=== PATIENT | female | born 1980 | race Caucasian/White ===

== ENCOUNTER → 2017-11-05 | Outpatient (CLI) | END | disposition home or self-care (01) ==

== ENCOUNTER 2018-05-28 17:45 | Inpatient (IN) | payer MEDICAID ==
[~2018-05-28] VITALS: Ht 154.9 cm; Wt 82.6 kg
[2018-05-28 18:25] VITALS: Ht 154.9 cm; Wt 82.6 kg
[2018-05-28 18:26] VITALS: BP 114/57; PULSE 77; RESP 19
--- NOTE | 2018-05-28 22:24 | HP ---
Date/Time of Note Date/Time of Note DATE: 05/28/18 TIME: 22:19 OB - History Hx of Present Chief Complaint: antepartum testing Estimated Due Date: Jun 30, 2018 : 5 Para: 4 Spontaneous : 0 Therapeutic : 0 Care: Good Care Ultrasounds: Normal mid trimester US Obstetrical Complications: Gestational Diabetes Medical Complications: None Past Family/Social History * Past Medical, Surgical, Family and Obstetric Histories reviewed from chart. OB Admission Exam Vital Signs Vital Signs Vital Signs Date Temp Pulse Resp B/P (MAP) Pulse Ox O2 O2 Flow FiO2 Time Delivery Rate 05/28/18 98.5 77 19 114/57 Room Air 18:26 (76) Physical Exam HEENT: WNL Heart: Rhythm Normal Lungs: Clear, Equal Abdomen: WNL Extremities: Normal Reflexes: Normal Heart Rate: 120's Accelerations: Accelerations Present Decelerations: No Decelerations Varibility: Minimum Last 72 hourBlood Glucose Bedside Glucose - 72 Hours Test 05/28/18 19:56 Bedside Glucose 189 mg/dL (70-220) OB Assessment/Plan Reason for admission: other Other Assessment: uncontrolled DM Non reactive NST Plan: Other Other plan: Admit Continuous monitoring Perinatology consult ELEAZAR BEDOYA MD May 28, 2018 22:24
[2018-05-28] MEDS ORDERED: GLUCAGON 1 MG INJ IM PRN (23:00)
[2018-05-28] MEDS ORDERED: DEXTROSE 50% 50 ML SYRINGE IV PRN ×2 (23:00)
[2018-05-28] MEDS ORDERED: GLUCOSE GEL 15 GRAM TUBE BUCCAL PRN (23:00)
[2018-05-28] MEDS ORDERED: GLUCOSE GEL 15 GRAM TUBE PO PRN ×2 (23:00)
[2018-05-29] MEDS ORDERED: INSULIN ASPART [NOVOLOG] 3 ML PEN SC SCH ×4 (01:05→17:35)
[2018-05-29] MEDS ORDERED: NPH, HUMAN INSULIN ISOPHANE 3ML VIAL SC SCH ×4 (01:11→20:00)
[2018-05-29] MEDS: INSULIN ASPART [NOVOLOG] 3 ML PEN SC SCH ×3 (09:21→20:26)
[2018-05-29] MEDS: NPH, HUMAN INSULIN ISOPHANE 3ML VIAL SC SCH (09:23)
--- NOTE | 2018-05-29 10:11 | TRIAGE ---
OB Triage Datetime Report Generated by CPN: 05/29/2018 10:10 Datetime: 05/29/2018 09:00 Assessment Type: Admission Assessment Vaginal Bleeding: None Maternal Assessment Level of Consciousness: Fully Conscious DTR's/Clonus: DTRs 2+; No Clonus Headache: Denies Blurred Vision: No Respiratory Effort: Unlabored; Regular Rhythm; Equal Expansion Breath Sounds, Left: Clear and Equal Breath Sounds, Right: Clear and Equal Nausea/Vomiting: Denies RUQ Epigastric Pain: Denies Lower Extremities Edema: None Degree: None Upper Extremities Edema: None Degree: None Facial Edema: None Fall Risk Assessment History of Falling: (0) No Secondary Diagnosis: (0) No Ambulatory Aid: (0) Bedrest/Nurse Assist IV Therapy: (0) No Gait: (0) Normal/Bedrest/Immobile Mental Status: (0) Oriented to Own Ability Fall Score: 0 Fall Risk Score Definition: No Risk: No action required Labor Evaluation Frequency: irr Duration (sec)2399: 50 Quality: Mild Pattern: Normal: <= 5 Contractions in 10 Minutes Resting Tone [place]: Relaxed Heart Rate FHR Baseline Rate: 144 Variability: Moderate 6-25 bpm Accelerations: 15X15 Decelerations: None Category: Category I Pain Assessment Pain Scale: 0 Vaginal Exam Membrane Status: Intact Datetime: 05/29/2018 07:57 Labor Evaluation Frequency: 3-6 Monitor Mode: External Duration (sec)2399: 50-60 Quality: Mild Pattern: Normal: <= 5 Contractions in 10 Minutes Resting Tone [place]: Relaxed Heart Rate FHR Baseline Rate: 135 Monitor Mode: External US Variability: Moderate 6-25 bpm Accelerations: 15X15 Decelerations: None Category: Category I Pain Presence: None/Denies Pain Type: N/A Datetime: 05/29/2018 07:00 Stage of : OB Triage Labor Evaluation Frequency: IRREG Monitor Mode: External Duration (sec)2399: 50-80 Quality: Mild Pattern: Normal: <= 5 Contractions in 10 Minutes Resting Tone [place]: Relaxed Heart Rate FHR Baseline Rate: 140 Monitor Mode: External US Variability: Moderate 6-25 bpm Accelerations: 15X15 Decelerations: None Category: Category I Datetime: 05/29/2018 06:00 Stage of : OB Triage Labor Evaluation Frequency: IRREG Monitor Mode: External Duration (sec)2399: 50-80 Quality: Mild Pattern: Normal: <= 5 Contractions in 10 Minutes Resting Tone [place]: Relaxed Heart Rate FHR Baseline Rate: 140 Monitor Mode: External US Variability: Moderate 6-25 bpm Accelerations: 15X15 Decelerations: None Category: Category I Datetime: 05/29/2018 05:00 Stage of : OB Triage Labor Evaluation Frequency: IRREG Monitor Mode: External Duration (sec)2399: 50-80 Quality: Mild Pattern: Normal: <= 5 Contractions in 10 Minutes Resting Tone [place]: Relaxed Heart Rate FHR Baseline Rate: 140 Monitor Mode: External US Variability: Moderate 6-25 bpm Accelerations: 15X15 Decelerations: None Category: Category I Datetime: 05/29/2018 04:00 Stage of : OB Triage Labor Evaluation Frequency: IRREG Monitor Mode: External Duration (sec)2399: 50-80 Quality: Mild Pattern: Normal: <= 5 Contractions in 10 Minutes Resting Tone [place]: Relaxed Heart Rate FHR Baseline Rate: 140 Monitor Mode: External US Variability: Moderate 6-25 bpm Accelerations: 15X15 Decelerations: None Category: Category I Datetime: 05/29/2018 03:00 Stage of : OB Triage Labor Evaluation Frequency: IRREG Monitor Mode: External Duration (sec)2399: 50-80 Quality: Mild Pattern: Normal: <= 5 Contractions in 10 Minutes Resting Tone [place]: Relaxed Heart Rate FHR Baseline Rate: 140 Monitor Mode: External US Variability: Moderate 6-25 bpm Accelerations: 15X15 Decelerations: None Category: Category I Datetime: 05/29/2018 02:00 Stage of : OB Triage Labor Evaluation Frequency: IRREG Monitor Mode: External Duration (sec)2399: 50-90 Quality: Mild Pattern: Normal: <= 5 Contractions in 10 Minutes Resting Tone [place]: Relaxed Heart Rate FHR Baseline Rate: 140 Monitor Mode: External US Variability: Moderate 6-25 bpm Accelerations: 15X15 Decelerations: None Category: Category I Datetime: 05/29/2018 01:00 Stage of : OB Triage Labor Evaluation Frequency: OCCASS Monitor Mode: External Duration (sec)2399: 50-60 Quality: Mild Pattern: Normal: <= 5 Contractions in 10 Minutes Resting Tone [place]: Relaxed Heart Rate FHR Baseline Rate: 145 Monitor Mode: External US Variability: Moderate 6-25 bpm Accelerations: 15X15 Decelerations: None Category: Category I Datetime: 05/29/2018 00:00 Stage of : OB Triage Labor Evaluation Frequency: [place]CC[place] Monitor Mode: External Duration (sec)2399: 50-90 Quality: Mild Pattern: Normal: <= 5 Contractions in 10 Minutes Resting Tone [place]: Relaxed Heart Rate FHR Baseline Rate: 140 Monitor Mode: External US Variability: Moderate 6-25 bpm Accelerations: 15X15 Decelerations: None Category: Category I Datetime: 05/28/2018 23:00 Stage of : OB Triage Labor Evaluation Frequency: OCCASS Monitor Mode: External Duration (sec)2399: 50-80 Quality: Mild Pattern: Normal: <= 5 Contractions in 10 Minutes Resting Tone [place]: Relaxed Heart Rate FHR Baseline Rate: 150 Monitor Mode: External US Variability: Moderate 6-25 bpm Accelerations: 15X15 Decelerations: None Category: Category I Datetime: 05/28/2018 22:00 Stage of : OB Triage Labor Evaluation Frequency: OCCASS Monitor Mode: External Duration (sec)2399: 50-90 Quality: Mild Pattern: Normal: <= 5 Contractions in 10 Minutes Resting Tone [place]: Relaxed Heart Rate FHR Baseline Rate: 150 Monitor Mode: External US Variability: Moderate 6-25 bpm Accelerations: 15X15 Decelerations: None Category: Category I Pain Presence: None/Denies Datetime: 05/28/2018 21:00 Stage of : OB Triage Labor Evaluation Frequency: IRREGG Monitor Mode: External Duration (sec)2399: 50-90 Quality: Mild Pattern: Normal: <= 5 Contractions in 10 Minutes Resting Tone [place]: Relaxed Heart Rate FHR Baseline Rate: 150 Monitor Mode: External US Variability: Moderate 6-25 bpm Accelerations: 15X15 Decelerations: None Category: Category I Pain Presence: None/Denies Datetime: 05/28/2018 20:00 Stage of : OB Triage Labor Evaluation Frequency: IRREGG Monitor Mode: External Duration (sec)2399: 50-90 Quality: Mild Pattern: Normal: <= 5 Contractions in 10 Minutes Resting Tone [place]: Relaxed Heart Rate FHR Baseline Rate: 150 Monitor Mode: External US Variability: Moderate 6-25 bpm Accelerations: 15X15 Decelerations: None Category: Category I Pain Presence: None/Denies Datetime: 05/28/2018 19:02 Labor Evaluation Frequency: occas Monitor Mode: External Duration (sec)2399: 50-90 Quality: Mild Pattern: Normal: <= 5 Contractions in 10 Minutes Resting Tone [place]: Relaxed Heart Rate FHR Baseline Rate: 150 Monitor Mode: External US Variability: Moderate 6-25 bpm Accelerations: 15X15 Decelerations: None Category: Category I Datetime: 05/28/2018 18:33 Assessment Type: Triage Time of Arrival: 05/29/2018 09:00 EGA: 35.3 Arrived By: Ambulatory Arrived From: Home Maternal Assessment Level of Consciousness: Fully Conscious DTR's/Clonus: DTRs 2+; No Clonus Headache: Denies Blurred Vision: No Respiratory Effort: Unlabored; Regular Rhythm; Equal Expansion Breath Sounds, Left: Clear and Equal Breath Sounds, Right: Clear and Equal Nausea/Vomiting: Denies RUQ Epigastric Pain: Denies Lower Extremities Edema: None Degree: None Upper Extremities Edema: None Degree: None Facial Edema: None Fall Risk Assessment History of Falling: (0) No Secondary Diagnosis: (0) No Ambulatory Aid: (0) Bedrest/Nurse Assist IV Therapy: (0) No Gait: (0) Normal/Bedrest/Immobile Mental Status: (0) Oriented to Own Ability Fall Score: 0 Fall Risk Score Definition: No Risk: No action required Datetime: 05/28/2018 18:32 Time of Arrival: 05/28/2018 17:45 Arrived By: Ambulatory Arrived From: Office Chief Complaint: GDM Movement: Present Contractions: Denies/Absent Rupture of Membranes: Denies Vaginal Bleeding: None Vaginal Discharge: Denies Recent Sexual Intercouse: Denies Abdominal Trauma: Not Applicable Patient Complaints: Other Time Provider Notified: 05/28/2018 20:10 Provider Notified: YOLETTE Initial Plan: NST AND BPP
[2018-05-29] MEDS: LACTATED RINGER'S 1,000 ML IV SCH ×2 (11:55→18:22)
--- NOTE | 2018-05-29 17:11 | PN ---
Date/Time of Note Date/Time of Note DATE: 05/29/18 TIME: 16:46 OB Subjective Subjective Subjective Assessment/plan: 38 years old with single intrauterine at 35 weeks and 3 days with A2 gestational diabetes versus diabetes mellitus and history of 4 previous delivery admitted for close monitoring of heart rate as there was episode of minimal variability last night and control of blood glucose. She was seen in the clinic yesterday, she forgot to bring blood sugar log, however she stated her FBS was 115 and 2 hours postprandial after lunch [id number] and 2 hours postprandial after dinner 156. She was on 18 units regular insulin and 28 units NPH in the a.m. and 14 units regular and 14 units NPH at p.m. The dose in creased last evening to 20 regular and 30 NPH at the a.m. and 16 regular and 16 units NPH at p.m. - FHR: Reassuring. No sign of metabolic acidosis- Category I - Contractions: Occasional, she is comfortable and not feeling those - Continuous EFM, toco - O+/RI/GBS: neg - Perinatology, health educator consult - I discussed pt over the phone with Dr. Ramirez who recommended BMZ x2, check FBS, premeal and 2hPP BG with ISS coverage except no needs for extra insulin for FBS coverage. Subjective: Date of admission: 05/29/2018 Patient seen and examined. She states good movement. She denies nausea, vomiting, shortness of breath, chest pain, abdominal pain, headache, visual changes, vaginal bleeding or LOF. OB Objective Objective Objective VS - Last 72 Hours, by Label Date Temp Pulse Resp B/P (MAP) Pulse Ox O2 O2 Flow FiO2 Time Delivery Rate 05/28/18 98.5 77 19 114/57 Room Air 18:26 (76) General: Patient appears well, alert and oriented, NAD, appropriate mood and affect ABD: gravid, soft, non-tender. Back: No CVA tenderness (B/L) LE: Mild edema. No clubbing, cyanosis, edema, thigh or calf tenderness bilaterally FHT: 135 bpm , moderate variability with acceleration, no deceleration-category I Contractions: Occasional OB Assessment/Plan Other plan: 38 years old with single intrauterine at 35 weeks and 3 days with A2 gestational diabetes versus diabetes mellitus and history of 4 previous delivery admitted for close monitoring of heart rate as there was episode of minimal variability last night and control of blood glucose. She was seen in the clinic yesterday, she forgot to bring blood sugar log, however she stated her FBS was 115 and 2 hours postprandial after lunch [id number] and 2 hours postprandial after dinner 156. She was on 18 units regular insulin and 28 units NPH in the a.m. and 14 units regular and 14 units NPH at p.m. The dose increased last evening to 20 regular and 30 NPH at the a.m. and 16 regular and 16 units NPH at p.m. - FHR: Reassuring. No sign of metabolic acidosis- Category I - Contractions: Occasional, she is comfortable and not feeling those - Continuous EFM, toco - O+/RI/GBS: neg - Perinatology, health educator consult - I discussed pt over the phone with Dr. Ramirez who recommended BMZ x2, check FBS, premeal and 2hPP BG with ISS coverage except no needs for extra insulin for FBS coverage. THANG DE LA VEGA May 29, 2018 17:09
[2018-05-29] MEDS ORDERED: NPH, HUMAN INSULIN ISOPHANE 3ML VIAL SC ONE (18:00)
[2018-05-29] MEDS: BETAMET NA PHOS/AC(6 MG/ML) 2 ML INJ SYG IM SCH (18:01)
[2018-05-29] MEDS: ACCU-CHEK XX SCH (18:40)
--- NOTE | 2018-05-30 01:33 | CONS ---
DATE OF ADMISSION: 05/29/2018 DATE OF CONSULTATION: 05/29/2018 HISTORY OF PRESENT ILLNESS: She was sent from the clinic because of uncontrolled diabetes. She is c urrently on NPH 30 units in the morning, Humalog 20 units before breakfast, Humalog 16 units before d inner and NPH 16 units at breakfast. I reviewed her blood sugars and fasting value is elevated. Two hours after breakfast, it is normal. These are the only 2 available values. RECOMMENDATIONS: Continue with the current dose of insulin. Only increase the NPH at bedtime to 18 units. ADDENDUM: Dr. De La Vega contacted me around 5:00 this afternoon and informed me that the patient is a ctually 35 weeks and 3 days and not 36 weeks. Given that information and the fact that she thought h ave contractions but she does not feel them, cervical exam is unknown and her sugars seems to be over all under controlled, Dr. De La Vega knew about her 2 hour after lunch value and is also normal, so bet amethasone should be given and continue with the insulin, but place the patient on insulin sliding sc conor. For insulin sliding scale, the patient's blood sugar should be checked fasting 2 hours after br eakfast, before lunch, 2 hours after lunch and before dinner, 2 hours after dinner. Insulin sliding scale should not cover the fasting values; otherwise it can be . If patient starts feeling the contractions and she is in pain then in that case I do believe delivery should be considered; however , final decision should be made based on clinical presentation of the patient. Dictated By: TYRONE SOLIMAN MD [facility] Conf#: [id number] DID#: [id number] CC: THANG DE LA VEGA MD;*EndCC*
[2018-05-30] MEDS: LACTATED RINGER'S 1,000 ML IV SCH ×3 (04:07→20:38)
[2018-05-30] MEDS: INSULIN ASPART [NOVOLOG] 3 ML PEN SC SCH ×4 (08:34→21:00)
[2018-05-30] MEDS: NPH, HUMAN INSULIN ISOPHANE 3ML VIAL SC SCH (08:36)
--- NOTE | 2018-05-30 13:13 | NUR ---
Nutrition Consult Consult regarding gestational diabetes education was ordered. Pt was seen at bedside. Recommended to avoid sugary drinks and sugar snacks. Talked about reducing grains, fruits, and milk intake. Encouraged her to eat more vegetables and protein. Also, talked about the benefits of exercising. all questions were answered and educational handouts were provided. Thank you!
[2018-05-30] MEDS ORDERED: DOCUSATE SODIUM 100 MG CAP PO PRN (17:00)
--- NOTE | 2018-05-30 18:00 | QN ---
Documentation Comment Denies any complaint. Denies any contraction, leaking of fluid or vaginal bleeding. Comfortable in bed General appearance: Alert and oriented x4 does not appear to be in any acute distress abdomen: Soft, size consistent with dates NST: Category 1 occasional rate contraction noted on the monitor Blood sugar well controlled with current regimen ordered by perinatologist Assessment IUP at 35 weeks and 4 days contraction, status post tocolysis and received 1 dose of steroid Due for second dose of steroid and 1824 today GDM, A2 Management of her blood sugar by insulin sliding scale on by perinatologist No evidence of labor Stable testing reassuring Continue routine management SCD while in bed LANE HERNANDEZ MD May 30, 2018 18:00
[2018-05-30] MEDS: BETAMET NA PHOS/AC(6 MG/ML) 2 ML INJ SYG IM SCH (18:20)
[2018-05-30] MEDS: ACCU-CHEK XX SCH ×2 (20:36→22:39)
[2018-05-30] MEDS ORDERED: INSULIN ISOPHANE (NPH) 10 ML INJ SC ONE (21:00)
[2018-05-31] MEDS: LACTATED RINGER'S 1,000 ML IV SCH ×3 (04:18→19:02)
[2018-05-31] MEDS ORDERED: morphine SULFATE/PF (10 MG/10 ML) INJ ONE (07:00)
[2018-05-31] MEDS ORDERED: OXYTOCIN 30 UNITS/LR 500 ML BAG IV ONE (07:00)
[2018-05-31] MEDS: INSULIN ASPART [NOVOLOG] 3 ML PEN SC SCH ×6 (07:05→21:00)
[2018-05-31] MEDS ORDERED: NPH, HUMAN INSULIN ISOPHANE 3ML VIAL SC ONE (07:05)
[2018-05-31] MEDS: ACCU-CHEK XX SCH ×3 (07:52→14:20)
--- NOTE | 2018-05-31 15:48 | CONS ---
DATE OF ADMISSION: 05/29/2018 DATE OF CONSULTATION: 05/31/2018 HISTORY OF PRESENT ILLNESS: I did review the patient's heart tone monitoring. There is 1 late deceleration; otherwise is reassuring. She is silvino, but she does not feel the contractions. Her cervical exam is closed. I do recommend to monitor in-house because she has had 4 C-sections. She is silvino, but so ther e is a risk of abruption and if she has 1 more late deceleration, I do recommend delivery, nonreassur ing heart tone. RECOMMENDATIONS: I do recommend delivery or she is in labor, I do recommend delivery. In addition, I reviewed her glucose values and an insulin adjustment was done. Dictated By: TYRONE SOLIMAN MD ST/[facility] Conf#: [id number] DID#: [id number] CC: THANG DE LA VEGA MD;*EndCC*
[2018-05-31] MEDS ORDERED: MISOPROSTOL 200 MCG TAB PR PRN ×2 (16:30→20:30)
[2018-05-31] MEDS ORDERED: CARBOPROST 250 MCG INJ IM PRN ×2 (16:30→20:30)
[2018-05-31] MEDS ORDERED: OXYTOCIN 30 UNITS/LR 500 ML IV PRN ×2 (16:30→20:30)
[2018-05-31] MEDS ORDERED: METHYLERGONOVINE 0.2 MG INJ IM PRN ×2 (16:30→20:30)
[2018-05-31] MEDS ORDERED: CEFAZOLIN 2 GM/50 ML (PMX) 50 ML IVPB SCH (16:30)
[2018-05-31] MEDS ORDERED: OXYTOCIN 30 UNITS/LR 500 ML IV SCH ×2 (16:30→20:22)
--- NOTE | 2018-05-31 16:44 | NUR ---
Diabetes Education Referral: Thank you for the referral. R: Upon discharge pt will require RX for True Metrix test strips, lancets and syringes. Consider recommending pt to GDM nutritional class. Pt stated she did not have T2DM before this , nor did she have GDM during her other pregnancies. Pt stated she has family members with T2DM. Pt stated prior to the hospital her levels would range from the 90-120s before meals and 140-170s after meals. Reviewed pt's insulin regimen and technique. Pt stated she only rolls her NPH 5 times prior to drawing up in the syringe, she injects the insulin cold and she takes her NPH and Regular together both AC breakfast and AC dinner. With the use of handouts discussed at length with patient at bedside how diabetes works in the body, how the extra glucose can cause hypoglycemia in the baby after delivery, where the glucose comes from, how food breaks down into glucose, and how different insulins (NPH & Regular) work. Reviewed glucose targets (pre and post meal), reviewed the different food groups and when/how to manage glucose by adjusting the carbohydrates and proteins. Discussed timing of the insulins, locations of administration, to rotate the administration site, to roll the NPH 20 times prior to drawing up, proper storage of the insulin, and to never inject insulin cold. Pt verbalized understanding. Reviewed the patient's increased risk of developing DM in the future but with diet and exercise she could possibly prevent it. All questions were answered. Resources provided for future questions.
--- NOTE | 2018-05-31 17:13 | QN ---
Documentation Comment 38y.o at 35w5d uc 6-8min who had x4 c/s earlier this am around 0500 had variable with late component for >1min closely observed , again at 1540 showed 1 late decelerations RN contacted Dr Red who advise to deliver. ate full meal at 1230 ,received NPH 34 Novalog 20 before breakfast 2hr PPBS 156 spoke to anesthegiologist (Solis herrera for 1900 today informed sharon Gallardo to go approximately 1900. patient also consented for tubal sterilization. will prepare for R C/S and BTL BESSY BLANCA MD May 31, 2018 17:12
[2018-05-31] MEDS ORDERED: ONDANSETRON 4 MG INJ IV STA (17:58)
[2018-05-31] MEDS ORDERED: METOCLOPRAMIDE 10 MG INJ IV ONE (18:00)
[2018-05-31] MEDS ORDERED: FAMOTIDINE 20 MG INJ IV ONE (18:00)
[2018-05-31] MEDS ORDERED: HYDROmorphONE 0.5 MG/0.5 ML SYG IV PRN ×2 (19:00)
[2018-05-31] MEDS ORDERED: KETOROLAC 30 MG INJ IV PRN ×2 (19:00)
[2018-05-31] MEDS ORDERED: NALOXONE (0.4 MG/ML) INJ IV PRN (19:00)
[2018-05-31] MEDS ORDERED: FENTAnyl 50 MCG/ML VIAL IV PRN ×2 (19:00)
[2018-05-31] MEDS ORDERED: ONDANSETRON 4 MG INJ IV PRN ×2 (19:00)
[2018-05-31] MEDS ORDERED: HYDROmorphONE 1 MG/5 ML IV SYRINGE IV PRN ×3 (19:00)
[2018-05-31] MEDS ORDERED: DIPHENHYDRAMINE 50 MG INJ IV PRN ×2 (19:00)
[2018-05-31] MEDS ORDERED: ZOLPIDEM 5 MG TAB PO PRN (19:00)
--- NOTE | 2018-05-31 19:00 | PREAC ---
Date/Time of Note Date/Time of Note DATE: 05/31/18 TIME: 18:58 Anesthesia Eval and Record Evaluation Time Pre-Procedure Interview DATE: 05/31/18 TIME: 18:58 Age 38 Sex female NPO: 8 hrs Preoperative diagnosis intolerance of labor Planned procedure repeat Csection Past Medical History Past Medical History: Includes : Other (CSx4 in past) Surgery & Anesthesia Issues Significant blood loss Meds Anticoagulation: No Beta Keyshawn within 24 hr: No Reason Beta Keyshawn not given: Pt. not on B-Keyshawn No Active Prescriptions or Reported Meds Current Medications Miscellaneous Information 1 ea NOTE XX ; Start 05/28/18 at 23:00 Glucose (Glutose) 15 gm Q15M PRN PO DECREASED GLUCOSE; Start 05/28/18 at 23:00 Glucose (Glutose) 22.5 gm Q15M PRN PO DECREASED GLUCOSE; Start 05/28/18 at 23:00 Dextrose (D50w Syringe) 25 ml Q15M PRN IV DECREASED GLUCOSE; Start 05/28/18 at 23:00 Dextrose (D50w Syringe) 50 ml Q15M PRN IV DECREASED GLUCOSE; Start 05/28/18 at 23:00 Glucagon (Glucagen) 1 mg Q15M PRN IM DECREASED GLUCOSE; Start 05/28/18 at 23:00 Glucose (Glutose) 15 gm Q15M PRN BUCCAL DECREASED GLUCOSE; Start 05/28/18 at 23:00 Insulin Aspart (Novolog Insulin Pen) 20 unit WITH BREAKFAST SC Last administered on 05/31/18at 08:01; Admin Dose 20 UNIT; Start 05/29/18 at 07:35 Insulin Aspart (Novolog Insulin Pen) 16 unit WITH DINNER SC Last administered on 05/30/18at 18:16; Admin Dose 16 UNIT; Start 05/29/18 at 17:35 Lactated Ringer's 1,000 ml @ 125 mls/hr Q8H IV Last administered on 05/31/18at 14:23; Admin Dose 125 MLS/HR; Start 05/29/18 at 12:00 Insulin Aspart (Novolog Insulin Pen) AC MEALS AND BEDTIME SC ; Start 05/29/18 at 21:00 Diagnostic Test (Pha) (Accu-Chek) 1 ea FBSPP XX Last administered on 05/31/18at 14:20; Admin Dose 1 EA; Start 05/29/18 at 19:35 Docusate Sodium (Colace) 100 mg BID PRN PO CONSTIPATION; Start 05/30/18 at 17:00 Insulin Human NPH (Humulin N) 30 unit DAILY@08 SC ; Start 06/01/18 at 08:00 Insulin Human NPH (Humulin N) 24 unit HS SC ; Start 05/31/18 at 21:00 Cefazolin Sodium/ Dextrose 50 ml @ 100 mls/hr ONCE IVPB ; Start 05/31/18 at 16:30 Oxytocin/Lactated Ringer's 500 ml @ 125 mls/hr POST IV ; Start 05/31/18 at 16:30 Oxytocin/Lactated Ringer's 500 ml @ 0 mls/hr ONCE PRN IV .VAGINAL BLEEDING; Start 05/31/18 at 16:30 Methylergonovine Maleate (Methergine) 0.2 mg ONCE PRN IM .VAGINAL BLEEDING; Start 05/31/18 at 16:30 Carboprost Tromethamine (Hemabate) 250 mcg ONCE PRN IM .VAGINAL BLEEDING; Start 05/31/18 at 16:30 Misoprostol (Cytotec) 1,000 mcg ONCE PRN RI .VAGINAL BLEEDING; Start 05/31/18 at 16:30 Meds reviewed: Yes Allergies Coded Allergies: No Known Drug Allergy (Verified Allergy, Unknown, 07/11/12) Allergies Reviewed: Yes Labs/Studies Labs Reviewed: Reviewed by anesthesiologist Result Diagram: 05/31/18 1724 Laboratory Tests 05/31/18 17:24 Blood Bank Test 05/31/18 17:24 Antibody Screen NEGATIVE Blood Product Summary Counts Blood Type O POSITIVE Crossmatch Red Blood Cells Rh Immune Globulin Candidate NO test: Positive Pre-procedure Exam Last vitals Vital Signs Date Temp Pulse Resp B/P (MAP) Pulse Ox O2 O2 Flow FiO2 Time Delivery Rate 05/28/18 98.5 77 19 114/57 Room Air 18:26 (76) Airway: Adequate mouth opening, Adequate thyromental dist Mallampati: Mallampati III Teeth: Normal Lung: Normal Heart: Normal ASA Physical Status ASA physical status: 3 Emergency: None Planned Anesthetic Neuraxial: Spinal Planned Pain Management Sub-arachniod narcotics, Parenteral pain med, Other neuraxial med Pre-operative Attestations Prior to commencing anesthesia and surgery, the patient was re-evaluated, there was verification of: *The patient's identity *The results of appropriate recent lab work and preoperative vital signs *The above evaluation not changing prior to induction *Anesthetic plan, risk benefits, alternative and complications discussed with patient/family; questions answered; patient/family understands, accepts and wishes to proceed. JOEY PARDO MD May 31, 2018 18:59
[2018-05-31] MEDS ORDERED: OXYTOCIN 30 UNITS/LR 500 ML IV ONE (19:02)
[2018-05-31] MEDS ORDERED: EPINEPHrine 1 MG INJ ONE (19:03)
[2018-05-31] MEDS ORDERED: DEXTROSE 5%-LR 1,000 ML IV SCH (20:22)
[2018-05-31] MEDS ORDERED: MAGNESIUM HYDROXIDE 30ML CUP PO PRN (20:30)
[2018-05-31] MEDS ORDERED: LANOLIN HPA 1 PKT TOP PRN (20:30)
[2018-05-31] MEDS ORDERED: METHYLERGONOVINE 0.2 MG TAB PO PRN (20:30)
[2018-05-31] MEDS ORDERED: NPH, HUMAN INSULIN ISOPHANE 3ML VIAL SC SCH ×2 (21:00)
[2018-05-31] MEDS ORDERED: FENTAnyl 50 MCG/ML VIAL ONE (21:05)
--- NOTE | 2018-05-31 22:01 | OPR ---
Operative Report Planned Procedure Procedure date May 31, 2018 Procedure(s) - Repeat low transverse delivery - Bilateral tubal ligation Performed by see signature line Legal Document Specialist: ESTEFANI MANRIQUE Anesthesiologist: JOEY PARDO MD Pre-procedure diagnosis A 38 years old with single intrauterine at 35 weeks and 5 days with A2 gestational diabetes versus diabetes mellitus, obesity, history of four previous delivery and nonreassuring heart rate desiring repeat delivery and permanent surgical sterilization. Liotc2Gy Anesthesia Type: [id number] spinal Post-Procedure Post-procedure diagnosis A 38 years old with single intrauterine at 35 weeks and 5 days with A2 gestational diabetes versus diabetes mellitus, obesity, history of 4 previous delivery and nonreassuring heart rate desiring repeat delivery and permanent surgical sterilization. Findings 1. Normal uterus except four centimeters window at right side of lower uterine segment. Normal fallopian tubes and ovaries 2. Viable male in cephalic presentation. 8 at one minute and 9 in 5 minutes. Weight: 3140 g - 7 pound 2 ounces. Height 19 inches. Time of delivery: 20:44 3. Placenta with three vessel cord 4. Amniotic fluid - Clear Estimated Blood Loss: 600 - 700 mls Specimen(s) none Grafts/Implant(s) none Complication(s) none Pt Condition post procedure: stable Disposition: PACU Procedure Description INDICATION AND HISTORY: A 38 years old with single intrauterine at 35 weeks and 5 days with A2 gestational diabetes versus diabetes mellitus, obesity, history of 4 previous delivery and nonreassuring heart rate desiring repeat delivery and permanent surgical sterilization. The risk of delivery including but not limited to bleeding, infection, injury to other organs (bowel, bladder, ureter, vessels, nerves), injury to fetus, blood transfusion, blood transfusion related infection, risk of anesthesia, adhesion, needs for future , removal of uterus, permanent surgical sterilization, increased risk of ectopic if failure of procedure occurs or any other indicated surgery was discussed with the patient and her family. She expressed understanding. All of her questions were answered. She signed the informed consent. DESCRIPTION OF OPERATION: The patient was taken to the operating room, where she was identified and the procedure was verified. The patient received two gram of Ancef 30 minutes prior to surgery. Spinal anesthesia was placed. The patient placed in the dorsal supine position with a left tilt. The heart rate was 136 bpm. The patient was then prepped and draped in the normal sterile fashion. A P fannenstiel skin incision was made and carried down to the fascia with Bovie. The fascia was incised in the midline and the fascial incision was carried laterally with Bovie. The superior portion of the fascial incision was then grasped with Adam clamps and tented up and dissected off the underlying rectus muscle with sharp dissection. The lower portion of the fascial incision was then made in a similar fashion. The rectus muscle was and the peritoneum was entered. The peritoneal incision was then stretched and an Jerod retractor was inserted. Then, an incision was made in the lower uterine segment in a transverse fashion with a knife and extended bluntly. The was delivered atraumatically in cephalic presentation with the above findings. The umbilical cord was clamped and cut. The neonatology resuscitation team was present and the baby was handed to them. A cord blood sample was obtained for further evaluation. The placenta and membrane, which appeared normal were Removed. The uterus was exteriorized and cleared of all clot and debris. The uterus was then closed in a two layer fashion with 0-Monocryl. At the time of closure, hemostasis was noted. The gutters were irrigated. The peritoneum was reapproximated with 3-0 Vicryl. The muscle was reapproximated with 3-0 Vicryl. The fascia was approximated with 0-PDS in a running fashion. The subcutaneous tissue was re approximated with 3-0 vicryl. The skin was closed with 4-0 Monocryl. All instruments, sponges and needle counts were correct x3. The patient tolerated the procedure well. She transferred to the recovery room in stable condition. THANG DE LA VEGA May 31, 2018 22:01
--- NOTE | 2018-05-31 22:06 | QN ---
Documentation Comment A 38 years old with single intrauterine at 35 weeks and 5 days with A2 gestational diabetes versus diabetes mellitus, obesity, history of 4 previous delivery and nonreassuring heart rate desiring repeat delivery and permanent surgical sterilization. Patient was seen by perinatologistDr. Ramirez, who recommend delivery. The risk of delivery including but not limited to bleeding, infection, injury to other organs (bowel, bladder, ureter, vessels, nerves), injury to fetus, blood transfusion, blood transfusion related infection, risk of anesthesia, adhesion, needs for future , removal of uterus, permanent surgical sterilization, increased risk of ectopic if failure of procedure occurs or any other indicated surgery was discussed with the patient and her family. She expressed understanding. All of her questions were answered. She signed the informed consent. She also is at significant risk for complications at the time of the delivery including shoulder dystocia, hemorrhage, possible Casserian- Hysterectomy for history of 4 previous delivery and at a further risk for postop complications including wound infection, deep vein thromboses and pulmonary embolism. All discussed with patient. She expressed understanding. Significance of losing weight after delivery also discussed. PHYSICIAN'S VERIFICATION OF INFORMED CONSENT The patient and her counseled regarding the procedure, its indications, risks, potential complications and alternatives and any questions were answered. Consent was obtained. PLANNED PROCEDURE/TREATMENT: delivery with possible using vac uum/forceps, bilateral tubal ligation and any other indicated surgery PHYSICIAN'S VERIFICATION OF INFORMED CONSENT FOR BLOOD TRANSFUSION: There is a reasonable possibility that blood transfusion will be necessary as a result of the patient's procedure. I have discussed the following with the patient/patient's legal account manager sales representative: An explanation of the benefits and risks of the transfusion of blood or blood products and the possible alternatives. All questions have been answered to the patient's satisfaction. INFORMED CONSENT:The patient has been informed of: The nature of the proposed care, treatment, services, medications, i nterventions or procedures. Potential benefits, risks or side effects, including potential problems related to recuperation. The likelihood of achieving care treatment and service goals. Reasonable alternatives to the proposed care, treatment and service. The relevant risks, benefits and side effects related to alternatives, including the possible results of not receiving care, treatment and services. When indicated, any limitations on the confidentiality of information learned from or about the patient. If appropriate, the risks, benefits and alternatives of the drugs to be used for sedation/analgesia including moderate sedation. If appropriate, patient has been provided information on the risks, benefits and alternatives to the transfusion of blood and/or blood products. If appropriate, patient has been provided information regarding the [place] Blood Act. THANG DE LA VEGA May 31, 2018 22:06
--- NOTE | 2018-05-31 22:20 | NUR ---
DR DE LA VEGA CALLED AND INFORMED THIS RN THAT SHE WOULD LIKE TO ADD GLUCOSE CHECKS TO ORDERS. MD WOULD LIKE BLOOD SUGAR CHECKS BEFORE MEALS AND AT BEDTIME. ALSO, PT TO REMAIN ON INSULIN SLIDING SCALE FOR NOW BUT ALL OTHER INSULIN TO BE CANCELLED. PT ALSO NEEDS DIABETIC CONSULT WHICH WAS ORDERED A FEW DAYS AGO BUT HAS NOT BEEN COMPLETED.
--- NOTE | 2018-05-31 22:23 | DELSUM ---
Delivery Summary A-C Datetime Report Generated by CPN: 05/31/2018 22:22 DELIVERY PERSONNEL Corrections Specialist: Ayala, Ebony MATERNAL INFORMATION Delivery Anesthesia: Spinal Medications in Delivery: see anesthesia Delivery QBL (ml): 650 Placenta Cultured: No Maternal Complications: Other Other Maternal Complications: GDM; R C/S X4 LABOR SUMMARY EDC: 06/30/2018 00:00 No. Babies in Womb: 1 Attempted: No Labor Anesthesia: None LABOR INFORMATION Reason for Induction: Not Applicable Oxytocin: N/A Group B Beta Strep: Negative Antibiotics # of Doses: 1 Antibiotics Time of Last Dose: 05/31/2018 20:13 Steroids Given: Full Course Reason Steroids Not Administered: Not Applicable MEMBRANES Membranes Rupture Method: Artificial Rupture of Membranes: 05/31/2018 20:44 Length of Rupture (hr): 0.00 Amniotic Fluid Color: Clear Amniotic Fluid Amount: Small STAGES OF LABOR Stage 3 hr: 0 Stage 3 min: 1 CSECTION DELIVERY Primary Indication: Repeat Elective Secondary Indication: Nonreassuring Stat CSection Urgency: Non Elective CSection Incidence: Repeat Labor: No Labor Elective: N/A CSection Incision: Lower Uterine Transverse Sterilization Procedure: [place] BABY A INFORMATION Delivery Date/Time: 05/31/2018 20:44 Method of Delivery: Born in Route : No : N/A Forceps: N/A Vacuum Extraction: N/A Shoulder Dystocia : N/A SHOULDER DYSTOCIA BABY A Infant Delivery Date/Time: 05/31/2018 20:44 PRESENTATION/POSITION BABY A Presentation: Cephalic Cephalic Presentation: Vertex Breech Presentation: N/A PLACENTA INFORMATION BABY A Placenta Delivery Time : 05/31/2018 20:45 Placenta Method of Delivery: Manual Removal Placenta Status: Delivered SCORES BABY A Heart Rate 1 min: >100 bpm Resp Effort 1 min: Good Cry Reflex Irritability 1 min: Cough/Sneeze/Pulls Away Muscle Tone 1 min: Active Motion Color 1 min: Blue/Pale Resuscitation Effort 1 min: Tactile Stimulation SCORE 1 MIN: 8 Heart Rate 5 min: >100 bpm Resp Effort 5 min: Good Cry Reflex Irritability 5 min: Cough/Sneeze/Pulls Away Muscle Tone 5 min: Active Motion Color 5 min: Body [place], Extremit Blue Resuscitation Effort 5 min: Tactile Stimulation SCORE 5 MIN: 9 INFANT INFORMATION BABY A Gestational Age at Delivery: 35.5 Gestational Status: Late - 34- 36.6 Weeks Outcome : Liveborn Condition : Stable Infant Sex: Male IDENTIFICATION/MEDS BABY A ID Band Number: [id number] ID Band Location: Right Leg; Left Arm Sensor Applied: Yes Sensor Number: [id number] Sensor Location : Cord Clamp Vitamin K Given : Not Given Erythromycin Given: Not Given WEIGHT/LENGTH BABY A Birthweight (gm): 3240 Infant Weight (lb): 7 Weight (oz): 2 Length (in): 19.00 Length (cm): 48.26 CORD INFORMATION BABY A No. Cord Vessels: 3 Nuchal Cord : N/A Cord Blood Taken: Yes Suction: Mouth; Nose ASSESSMENT BABY A Complications: None Physical Findings at Delivery: Within Normal Limits Respirations: Appears Normal Pump And Still Operator/ALS Called : No
[2018-06-01 00:10] VITALS: BP 114/65; PULSE 53; RESP 19
[2018-06-01] MEDS: SENNA/DOCUSATE NA (8.6MG/50MG) TAB PO SCH ×3 (00:47→21:52)
[2018-06-01] MEDS: IBUPROFEN 800 MG TAB PO SCH ×4 (00:47→21:53)
[2018-06-01 01:10] VITALS: BP 115/75; PULSE 54; RESP 18
[2018-06-01 04:00] VITALS: BP 99/55; PULSE 60; RESP 17
--- NOTE | 2018-06-01 06:24 | NUR ---
EOSS: PATIENT IN STABLE CONDITION. DUE FOR DIABETIC CONSULT TODAY. BONDING WELL WITH INFANT. WELL. TOLERATING CLEAR LIQUIDS. FUNDUS IS FIRM AT UMBILICUS WITH SMALL TO MODERATE AMOUNT OF LOCHIA. PATIENT IS AFEBRILE.
[2018-06-01] MEDS ORDERED: METHYLERGONOVINE 0.2 MG INJ ONE (07:00)
[2018-06-01] MEDS ORDERED: CARBOPROST 250 MCG INJ ONE (07:00)
[2018-06-01] MEDS ORDERED: NPH, HUMAN INSULIN ISOPHANE 3ML VIAL SC SCH (08:00)
[2018-06-01 08:30] VITALS: BP 88/51; PULSE 65; RESP 18
[2018-06-01] MEDS ORDERED: DIPHTH/TET/ACEL PERTUSS (ADULT) 0.5 ML VIAL IM* ONE (11:00)
[2018-06-01] MEDS: HYDROCODONE/APAP (5/325) TAB GTB SCH ×2 (14:00→21:53)
[2018-06-01 16:00] VITALS: BP 97/59; PULSE 62; RESP 18
--- NOTE | 2018-06-01 18:53 | PN ---
Date/Time of Note Date/Time of Note DATE: 06/01/18 TIME: 18:45 OB Subjective Subjective Subjective POD#1 Patient is doing well. She denies nausea, vomiting, shortness of breath, chest pain, headache. She has been ambulating without difficulty, tolerating regular diet. Pain is well controlled on current medications OB Objective Objective Objective VS - Last 72 Hours, by Label Date Temp Pulse Resp B/P (MAP) Pulse Ox O2 O2 Flow FiO2 Time Delivery Rate 06/01/18 98.1 62 18 97/59 (72) 99 Room Air 16:00 06/01/18 98.9 65 18 88/51 (63) 97 Room Air 08:30 06/01/18 98.4 60 17 99/55 (70) 96 Room Air 04:00 06/01/18 98.9 54 18 115/75 97 Room Air 01:10 (88) 06/01/18 99.0 53 19 114/65 97 Room Air 00:10 (81) General: AAO X 3, comfortable, NAD, appropriate mood and affect. Heart: RRR +S1, +S2, no murmurs. Lungs: Clear to auscultation (B/L), no rales, rhonchi or wheezing. ABD: +BS. Soft, non-tender. Uterus 2 cm below umbilicus Incision: Clear, dry, intact. No erythema, drainage or induration. Flank: No CVA tenderness (B/L) LE: Mild edema. No clubbing, cyanosis, thigh or calf tenderness (B/L). Homans 'sign is negative OB Assessment/Plan Other plan: 38-year-old with A2 gestational diabetes s/p repeat delivery for nonreassuring heart rate. POD#1 - AF, VSS - Baby is doing well, at bed side. She is bonding well - Contraception methods with R/B/A/FR discussed - Continue care - She she would like to be discharged home tomorrow - Rx and instruction given - Follow up in one and 6 weeks 2) Gestational DM: She was on insulin during . Insulin sliding scale after delivery. There was no need for insulin injection as all her blood glucose where within normal limits. Significance of performing 75 g 2- hour glucose tolerance test at 6-12 weeks after delivery discussed with patient. She expressed understanding. Diet and exercise also discussed THANG DE LA VEGA 26, 2019 18:53
--- NOTE | 2018-06-01 18:54 | DS ---
Date/Time of Note Date/Time of Note DATE: 06/01/18 TIME: 18:53 Obstetrical Discharge Record Final Diagnosis Final Diagnosis: Term delivered Other Final Diagnosis 38-year-old with A2 gestational diabetes s/p repeat delivery for nonreassuring heart rate. POD#1. Her course was unremarkable she has been ambulating and tolerating regular diet. She is voiding without difficulty. Pain is well controlled on current medication. - AF, VSS - Baby is doing well, at bed side. She is bonding well - Contraception methods with R/B/A/FR discussed - Continue care - She she would like to be discharged home tomorrow - Rx and instruction given - Follow up in one and 6 weeks 2) Gestational DM: She was on insulin during . Insulin sliding scale after delivery. There was no need for insulin injection as all her blood glucose where within normal limits. Significance of performing 75 g 2- hour glucose tolerance test at 6-12 weeks after delivery discussed with patient. She expressed understanding. Diet and exercise also discussed Section Section: Repeat Condition on Discharge Physical Assessment Last Vitals: Vital Signs Date Temp Pulse Resp B/P (MAP) Pulse Ox O2 O2 Flow FiO2 Time Delivery Rate 06/01/18 98.1 62 18 97/59 (72) 99 Room Air 16:00 Voiding: Yes Bowel Movement: Yes Breast: Soft, non-tender Fundus: Firm Calf Tenderness: No Patient Condition: Stable THANG DE LA VEGA Jun 01, 2018 18:54
--- NOTE | 2018-06-01 18:58 | NUR ---
EOSS CONDITION IS STABLE. ALL BLOOD SUGAR HAVE BEEN WITHIN NORMAL LIMITS. PATIENT HAS NOT REQUIRED ANY INSULIN THIS SHIFT. PASSING GAS, SOFT DIET TAKEN WELL. NO NAUSEA OR VOMITING. TORADOLE EFFECTIVE FOR PAIN. BONDING WELL WITH MOM AND FAMILY
[2018-06-01] MEDS ORDERED: MAGNESIUM HYDROXIDE 30ML CUP PO ONE (19:30)
[2018-06-01 20:00] VITALS: BP 105/77; PULSE 73; RESP 18
[2018-06-01] MEDS ORDERED: HYDROCODONE/APAP (5/325) TAB NGT PRN (20:00)
[2018-06-01] MEDS: INSULIN ASPART [NOVOLOG] 3 ML PEN SC SCH (21:20)
[2018-06-02 04:00] VITALS: BP 101/54; PULSE 59; RESP 18
--- NOTE | 2018-06-02 05:04 | NUR ---
EOSS: Pt is in stable condition. No distress noted. Mcduffie D/C'd. Got pt up on chair, Tolerated well, no dizziness noted. Up and voided x2. Fundus firm with scanty to small amount of lochia noted. Bonding well with Baby.
[2018-06-02] MEDS: HYDROCODONE/APAP (5/325) TAB GTB SCH ×3 (05:51→21:20)
[2018-06-02] MEDS: IBUPROFEN 800 MG TAB PO SCH ×3 (05:52→21:20)
[2018-06-02 08:00] VITALS: BP 101/59; PULSE 60; RESP 18
[2018-06-02] MEDS: INSULIN ASPART [NOVOLOG] 3 ML PEN SC SCH ×4 (08:00→21:00)
[2018-06-02] MEDS: SENNA/DOCUSATE NA (8.6MG/50MG) TAB PO SCH ×2 (09:00→21:20)
[2018-06-02 16:00] VITALS: BP 96/58; PULSE 65; RESP 18
--- NOTE | 2018-06-02 18:35 | NUR ---
EOSS: Vital signs stable, fingerstick blood sugar results within normal range. No insulin coverage required. Pain controlled with scheduled Motrin and [place]. Lochia small, abdominal dressing intact and to be removed 48 hours post delivery as ordered by Dr. Gallardo during rounds. Bonding with baby.
[2018-06-02 20:00] VITALS: BP 105/72; PULSE 61; RESP 20
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
[2018-06-03] MEDS ORDERED: LACTATED RINGER'S 500 ML IV ONE (01:30)
[2018-06-03] MEDS ORDERED: HYDROCODONE/APAP (5/325) TAB PO ONE (01:30)
--- NOTE | 2018-06-03 02:45 | NUR ---
PATIENT CLAIMED SHE FELT A LOT BETTER THIS TIME AFTER THE NORCO AND LR BOLUS. NO MORE PAIN ON HER NAOPE AND EARACHE WAS RELIEVED.
[2018-06-03] MEDS: LACTATED RINGER'S 500 ML IV SCH ×6 (02:53→17:30)
[2018-06-03 04:30] VITALS: BP 106/54; PULSE 60; RESP 18
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
[2018-06-03] MEDS: HYDROCODONE/APAP (5/325) TAB GTB SCH (06:21)
[2018-06-03] MEDS: IBUPROFEN 800 MG TAB PO SCH ×3 (06:22→21:13)
[2018-06-03 08:30] VITALS: BP 101/59; PULSE 59; RESP 16
[2018-06-03] MEDS ORDERED: MEASLES,MUMPS,RUBELLA VACCINE INJ SC* ONE (09:00)
[2018-06-03] MEDS ORDERED: DIPHTH/TET/ACEL PERTUSS (ADULT) 0.5 ML VIAL IM* ONE ×2 (09:00→18:00)
[2018-06-03] MEDS: SENNA/DOCUSATE NA (8.6MG/50MG) TAB PO SCH ×2 (09:16→21:13)
--- NOTE | 2018-06-03 10:00 | NUR ---
Dr. Holloway here to evaluate Patient. States He will ask Anesthesiologist Dr. Ozuna to come and evaluate Patient. Patient aware of plan.
--- NOTE | 2018-06-03 10:01 | QN ---
Documentation Comment As per request,patient is seen by the bedside She is complaining of Headache and Neck pain No Franky stiffness, Otherwise vitals are WNL and no abnorality in Exam ,anesthesiology contacted to evaluate the patient for possible spinal headache SUSAN STONER M.D. Jun 03, 2018 10:01
--- NOTE | 2018-06-03 11:00 | NUR ---
Patient resting comfortably. No c/o at this time.
--- NOTE | 2018-06-03 12:35 | NUR ---
Patient c/o of neck pain. Called Dr. Ozuna but no answered, because He is in the OR. Then I called Dr. Holloway who states He already spoke with Dr. Ozuna who will be coming to evaluate Patient after the surgery.
[2018-06-03] MEDS: HYDROCODONE/APAP (5/325) TAB PO PRN ×2 (12:55→18:46)
--- NOTE | 2018-06-03 13:18 | NUR ---
Spoke with Dr. Ozuna regarding Patient's condition and states that He is aware of Patient and will come see her.
[2018-06-03] MEDS ORDERED: LACTATED RINGER'S 1,000 ML IV SCH (14:00)
--- NOTE | 2018-06-03 14:40 | NUR ---
Dr. Ozuna here to evaluate Patient. Please refer to his note.
--- NOTE | 2018-06-03 16:00 | NUR ---
DR DE LA VEGA INFORMED THAT PT WANTS TO GO HOME AND THAT PT STATED SHE HAD NO MORE HEADACHES,.DR DE LA VEGA STATED THAT SHE WILL KEEP PATIENT ONE MORE NIGHT . WITH THE AIDE OF PAUL DANIEL PT WAS INFORMED THAT SHE WOULD STAY ONE MORE NIGHT TO MAKE SURE THAT HER HEADACHE IS GONE PT VERBALIZED UNDERSTANDING AND ALL HER QUESTIONS WERE ANSWERED.
[2018-06-03 16:27] VITALS: BP 125/62; PULSE 64; RESP 17
[2018-06-03] MEDS ORDERED: DIPHTH/TET/ACEL PERTUSS (ADULT) 0.5 ML VIAL ONE (17:33)
[2018-06-03] MEDS: INSULIN ASPART [NOVOLOG] 3 ML PEN SC SCH ×3 (17:35→21:00)
[2018-06-03] MEDS: HYDROCODONE/APAP (5/325) TAB PO SCH ×2 (18:36→21:14)
--- NOTE | 2018-06-03 18:47 | NUR ---
EOSS: Patient's vital signs stable. Family here visiting her. Patient states that she feels some neck pain coming back. Otherwise stable. Has been comfortable for the most part of this afternoon. Pain doesn't last long. was assessed by Dr. Holloway and Anesthesiologyst too. Will continue to monitor overnight. Anticipating discharge home tomorrow.
[2018-06-03 20:30] VITALS: BP 109/59; PULSE 61; RESP 18
[2018-06-04] MEDS: HYDROCODONE/APAP (5/325) TAB PO PRN ×2 (03:15→09:49)
[2018-06-04 04:00] VITALS: BP 104/57; PULSE 56; RESP 18
[2018-06-04] MEDS: HYDROCODONE/APAP (5/325) TAB PO SCH ×2 (05:19→13:48)
[2018-06-04] MEDS: IBUPROFEN 800 MG TAB PO SCH ×2 (05:20→13:48)
--- NOTE | 2018-06-04 06:01 | NUR ---
EOSS:VS WNL VOIDING W/O DIFFICULTIES,PAIN WELL CONTROLLED WITH PO MEDS,DENIES NECK PAIN OR ANY DISTRESS GOOD BONDING WITH BABY.
[2018-06-04] MEDS: INSULIN ASPART [NOVOLOG] 3 ML PEN SC SCH ×2 (07:35→11:20)
[2018-06-04 07:45] VITALS: BP 110/64; PULSE 54; RESP 17
[2018-06-04] MEDS: SENNA/DOCUSATE NA (8.6MG/50MG) TAB PO SCH (09:42)
--- NOTE | 2018-06-04 12:27 | QN ---
Documentation Comment POD#4 is stable afebrile tolerates diet No VB +BM +voids Vs stable Gen NAD Abd soft NT ND Incision intact Genitalia No blood at perineum --->Discharge plan home SUSAN STONER M.D. Jun 04, 2018 12:27
--- NOTE | 2018-06-04 12:27 | DS ---
Date/Time of Note Date/Time of Note DATE: 06/04/18 TIME: 12:27 Discharge Summary Admission/Discharge Info Admit Date/Time May 29, 2018 at 08:25 Discharge Date/Time 06/04/2018 Discharge Diagnosis Patient Condition: Good Hospital Course uneventful Home Meds No Active Prescriptions or Reported Meds Primary Care Provider Care Physician No Primary Pending Labs Laboratory Tests Test 06/03/18 16:55 06/03/18 21:11 06/04/18 07:45 06/04/18 11:27 Bedside 123 134 103 125 Glucose mg/dL (70-220) mg/dL (70-220) mg/dL (70-220) mg/dL (70-220) SUSAN STONER M.D. Jun 04, 2018 12:27
--- NOTE | 2018-06-04 13:00 | NUR ---
APPOINTMENT CARD WITH DR. DE LA VEGA PHONE NUMBER GIVEN TO THE PATIENT AND INSTRUCTED TO CALL AND MAKE FOLLOW UP APPOINTMENT WITH DR. DE LA VEGA IN 1 WEEK. PATIENT VERBALIZED UNDERSTANDING.
--- NOTE | 2018-06-04 14:20 | NUR ---
PATIENT STATES SHE ALREADY MADE FOLLOW UP APPOINTMENT WITH DR. DE LA VEGA ON JUNE 07 AT 1130AM.
--- NOTE | 2018-06-04 14:35 | NUR ---
WRITTEN AND VERBAL DISCHARGE TEACHING AND INSTRUCTIONS GIVEN TO THE PATIENT VIA LANGUAGE LINE, JARVIS # [id number]. 2 PRESCRIPTIONS WITH INSTRUCTIONS GIVEN, COPY SIGNED BY THE PATIENT AND IS IN THE CHART. WRITTEN AND VERBAL INSTRUCTIONS REGARDING C- SECTION WOUND CARE PROVIDED , DISCUSSED, AND SIGNED BY PATIENT. PATIENT VERBALIZED UNDERSTANDING.
--- NOTE | 2018-06-04 15:50 | NUR ---
PATIENT DISCHARGED HOME WITH BABY AT 1550 PM VIA WHEELCHAIR IN STABLE CONDITION ACCOMPANIED WITH FOB AND VOLUNTEER.
== END 2018-06-04 16:05 | disposition home or self-care (01) | DRG 785 ==
LOC: OBT 17:45 → L-D 17:46 → OBT 05-29 08:37 → L-D 05-30 23:14 → PP1 06-01 00:13
PROVIDERS: ADMIT Obstetrics & Gynecology; ATTEND Obstetrics & Gynecology
PROC: 0UB70ZZ Excision of Bilateral Fallopian Tubes, Open Approach (ICD-10-PCS; 2018-05-31)
PROC: 10D00Z1 Extraction of Products of Conception, Low, Open Approach (ICD-10-PCS; principal; 2018-05-31 20:00)
DX: O24.424 Gestational diabetes mellitus in childbirth, insulin controlled (principal); O76 Abnormality in fetal heart rate and rhythm complicating labor and delivery; O34.211 Maternal care for low transverse scar from previous cesarean delivery; O99.214 Obesity complicating childbirth; Z3A.35 35 weeks gestation of pregnancy; Z37.0 Single live birth; Z30.2 Encounter for sterilization
CPT/HCPCS: 76818; 82962; 85025; 85610; 85730; 86592; 86850; 86900; 86901; 86920; 88302; 90715; 99464; G0463; J0171; J0690; J0702; J1815; J1885; J2210; J2274; J2405; J2590; J2765; J3010; J7120; J7121